=== PATIENT | male | born 1965 | race Hispanic/Latino ===

== ENCOUNTER 2018-10-31 06:48 | Day surgery (SDC) ==
--- NOTE | 2018-10-26 08:18 | EKG Report ---
Test Performed on : 10/26/2018 08:02:23 AM Test Reason : PAT Blood Pressure : / mmHG Vent. Rate : 050 BPM Atrial Rate : 050 BPM P-R Int : 158 ms QRS Dur : 090 ms QT Int : 420 ms P-R-T Axes : 048 023 013 degrees QTc Int : 382 ms Sinus bradycardia. Otherwise normal ECG No previous ECGs available Confirmed by Sydnie SHARMA, Koby ([id number]) on 10/26/2018 8:57:47 AM
[2018-10-26 08:21] LABS: URINE SOURCE CLEAN CATCH
[2018-10-26 08:23] LABS: BASO# 0.03 X1000 (0.0-0.2); BASO% 0.4 % (0.0-0.8); EOS% 3.6 % (0.0-10.0); HEMATOCRIT 44.7 % (42.0-52.0); HEMOGLOBIN 15.3 g/dL (14.0-18.0); IMM GRAN# 0.03 X1000 (0.0-0.04); IMM GRAN% 0.4 % (0.0-0.5); LYMPH# 1.79 X1000 (1.2-3.4); LYMPH% 21.3 % (20.5-51.1); MCH 28.7 PG (27-31); MCHC 34.2 g/dL (33-37); MCV 83.9 FL (81-99); MONO% 5.9 % (1.7-9.3); MPV 9.6 FL (7.4-10.4); NEUT# 5.76 X1000 (1.4-6.5); NEUT% 68.4 % (42.2-75.2); PLT 262 X1000 (130-400); RBC 5.33 XMIL (4.7-6.1); RDW 12.9 % (11.5-14.5); WBC 8.41 X1000 (4.8-10.8)
[2018-10-26 08:25] LABS: BILIRUBIN URINE NEGATIVE (NEGATIVE); BLOOD URINE NEGATIVE (NEGATIVE); COLOR YELLOW; GLUCOSE URINE NEGATIVE (NEGATIVE); KETONE URINE NEGATIVE (NEGATIVE); LEUKOCYTES URINE NEGATIVE (NEGATIVE); NITRITE URINE NEGATIVE (NEGATIVE); PROTEIN URINE NEGATIVE (NEGATIVE); TURBIDITY URINE CLEAR (CLEAR); UROBILINOGEN URINE NORMAL (NORMAL)
[2018-10-26 08:27] LABS: UR EPITHELIAL CELLS <10 /HPF (<10); URINE BACTERIA NEGATIVE /HPF; URINE RBC <10 /HPF (<10); URINE WBC <10 /HPF (<10)
[2018-10-26 08:34] LABS: INR 0.89; PROTIME 12.8 Seconds (11.0-16.0)
[2018-10-26 08:35] LABS: PTT 26.6 Seconds (22.3-41.8)
[2018-10-26 08:42] LABS: HEMOGLOBIN A1C 5.6 % (4.8-6.0)
[2018-10-26 08:43] LABS: AGAP 10; ALBUMIN 4.6 g/dL (3.5-5.0); BUN 17 mg/dL (8-22); CALCIUM 9.3 mg/dL (8.8-10.2); CHLORIDE 103 mmol/L (98-107); COSMO 283; ESTIMATED GFR > 60; GLUCOSE 110 mg/dL (70-104); SODIUM 141 mmol/L (136-145); TCO2 28 mmol/L (25-35)
[2018-10-31] MEDS ORDERED: COLACE ONE (07:18)
[2018-10-31] MEDS ORDERED: LR 1,000 ML ONE (07:18)
[2018-10-31] MEDS ORDERED: CELEBREX ONE (07:18)
[2018-10-31] MEDS ORDERED: LYRICA ONE (07:18)
[2018-10-31] MEDS ORDERED: PEPCID ONE (07:18)
[2018-10-31] MEDS ORDERED: KEFZOL 2 GM/D5W 2 GM/50 ML IVPB ONE (07:18)
[2018-10-31] MEDS ORDERED: REGLAN ONE (07:18)
[2018-10-31] MEDS ORDERED: TORADOL ONE (07:31)
[2018-10-31] MEDS ORDERED: DURAMORPH ONE (07:31)
[2018-10-31] MEDS ORDERED: SENSORCAINE-MPF 0.5%/EPI 1:200,000 ONE (07:32)
[2018-10-31] MEDS ORDERED: CYKLOKAPRON 1,000 MG/NS 2,000 MG/200 ML IVPB ONE (07:32)
[2018-10-31] MEDS ORDERED: SODIUM CHLORIDE 0.9% ONE (07:32)
[2018-10-31] MEDS ORDERED: VANCOMYCIN ONE (07:32)
[2018-10-31] MEDS ORDERED: NEOSPORIN G.U. IRRIGANT ONE (07:33)
[2018-10-31] MEDS ORDERED: EXPAREL 1.3% ONE (07:33)
[2018-10-31] MEDS ORDERED: VERSED ONE (07:46)
[2018-10-31] MEDS ORDERED: DIPRIVAN 1% ONE (07:47)
[2018-10-31] MEDS ORDERED: FENTANYL ONE (07:47)
[2018-10-31] MEDS ORDERED: DECADRON ONE (08:57)
[2018-10-31] MEDS ORDERED: ZOFRAN ONE (08:57)
[2018-10-31] MEDS ORDERED: OFIRMEV 1000 MG/ISOTONIC SOLN 1,000 MG/100 ML BOTTLE ONE (08:57)
[2018-10-31 10:37] LABS: URINE SOURCE CATH
[2018-10-31 10:44] LABS: BILIRUBIN URINE NEGATIVE (NEGATIVE); BLOOD URINE NEGATIVE (NEGATIVE); COLOR YELLOW; GLUCOSE URINE NEGATIVE (NEGATIVE); KETONE URINE NEGATIVE (NEGATIVE); LEUKOCYTES URINE NEGATIVE (NEGATIVE); NITRITE URINE NEGATIVE (NEGATIVE); PROTEIN URINE NEGATIVE (NEGATIVE); SP GRAVITY URINE 1.017; TURBIDITY URINE CLEAR (CLEAR); UR EPITHELIAL CELLS <10 /HPF (<10); URINE BACTERIA NEGATIVE /HPF; URINE RBC <10 /HPF (<10); URINE WBC <10 /HPF (<10); UROBILINOGEN URINE NORMAL (NORMAL)
[2018-10-31] MEDS ORDERED: NS 1,000 ML ONE (10:59)
--- NOTE | 2018-10-31 11:15 | OPERATIVE NOTE ---
PROCEDURE DATE: 10/31/2018 PREOPERATIVE DIAGNOSIS: Right knee degenerative joint disease. POSTOPERATIVE DIAGNOSIS: Right knee degenerative joint disease. PROCEDURE PERFORMED: Right total knee arthroplasty using [facility] size 6 femoral component, a size 7 tibial baseplate, a 10 articular insert, and a 38 mm patellar component. ANESTHESIA: Spinal. SURGEON: Alejo Finn MD. PIGMENT MIXER: Adelaide Nova PA-C, who was present throughout the case. Her assistance was critical for exposure, placement of implants, and wound closure. Her assistance greatly reduced anesthesia and operative time, and improved the efficiency in the OR. BLOOD LOSS: Minimal. TOURNIQUET TIME: Approximately an hour and a half. DESCRIPTION OF PROCEDURE: Patient was brought to the operative suite and placed in the supine position. After successful administration of general anesthesia, a well-padded tourniquet was placed on the right proximal thigh. The right lower extremity was prepped and draped in the usual sterile fashion. Leg was exsanguinated. Tourniquet was insufflated to 350 torr. A longitudinal incision was made beginning at the superior pole of the patella and extending distally to the tibia tuberosity. A medial arthrotomy was performed. Medial capsule was elevated off the medial tibial plateau. ACL, PCL, medial meniscus, and lateral meniscus were excised. A drill was entered in the center of the distal femur. Intramedullary guide was placed. Distal cutting block was pinned in place. Distal cut was made with an oscillating saw. The marginal osteophytes were removed with a rongeur. The drill was entered in the center of the tibia. Intramedullary guide was placed. Alignment checked with drop maurilio, taking 4 mm off the low side of the tibia which, in this case, was medially. The tibial cutting block was pinned in place. The articular surface of the tibial plateau was removed with an oscillating saw. Extension gaps were measured at 10 mm. The guide was then set to 19 mm and rotation was set, and the femur was measured to a size 6. The size 6 cutting block was then pinned in place. The anterior cuts, chamfer cuts, and posterior condylar cuts were made with an oscillating saw. A box cutting block was pinned in place and a box cut was made with a box osteotome and oscillating saw. Posterior condyle osteophytes were removed with a curved osteotome and rongeur. Attention was then directed to the tibia. The tibia sized to size 7. A size 7 guide was used for the fin punch. The tibial trial, femoral trial, and 10 mm articular insert were placed and taken through range of motion. Found to have excellent alignment, balancing, and range of motion. Attention was then directed to patella. Nine millimeters of articular surface of patella were removed with oscillating saw. Patella sized to a size 38. A size 38 guide was used drill peg holes, lateral facet was chamfered 30 to 45 degrees. Patella trial was placed and taken through a range of motion. Found to have excellent patella tracking. All trials were then removed. Knee was copiously irrigated and dried, being certain all bone debris was removed. The tibial component, femoral component, and patellar component were cemented into place, excess cement being removed with a [place]. Once the cement had hardened, excess cement was again removed with an osteotome. Knee was again copiously irrigated and dried, being certain all bone and cement debris were removed. The trial articular insert was removed. The knee was copiously infiltrated with Exparel including the posterior capsule, anterior capsule, anterior musculature, and subcutaneous tissue. A drain was placed, exiting superolaterally, and buried in the lateral gutter. The trial articular insert was removed. The definitive articular insert was then locked into place, which was a size 10. The knee was again copiously irrigated and dried, being certain all bone and debris were removed, with normal saline containing irrigant and then Vashe irrigation. The medial arthrotomy was then closed with 0 V-Loc. The skin edge was approximated with 2-0 Vicryl and skin was closed with Prineo. A sterile dressing was applied. The patient tolerated the procedure well without complications. At the end of the procedure, all counts correct x2. The patient was transported to the recovery room in stable condition. cc: Alejo Finn MD
--- NOTE | 2018-10-31 12:44 | Diag Imaging Result Doc PS360 ---
EXAM: KNEE 1-2 VIEWS-RIGHT 10/31/2018 HISTORY: R TKA TECHNIQUE: Right knee two views COMMENT: There is a total knee arthroplasty. There is no evidence of fracture or other acute bony abnormality. IMPRESSION: Postsurgical change. Electronically signed by Mayank Lowery 10/31/2018 12:42 PM
[2018-10-31] MEDS ORDERED: ZOFRAN IV PRN (12:45)
[2018-10-31] MEDS ORDERED: MORPHINE IV PRN ×2 (12:45)
[2018-10-31] MEDS ORDERED: MILK OF MAGNESIA PO PRN (12:45)
[2018-10-31] MEDS: TYLENOL PO SCH ×2 (13:34→21:27)
[2018-10-31] MEDS: ULTRAM PO SCH ×2 (13:34→21:27)
[2018-10-31] MEDS: MORPHINE IV PRN ×2 (13:39→19:00)
[2018-10-31] MEDS: KEFZOL 2 GM/D5W 2 GM/50 ML IVPB IV SCH (16:08)
[2018-10-31] MEDS: NS 1,000 ML IV SCH (21:26)
[2018-10-31] MEDS: CELEBREX PO SCH (21:28)
[2018-10-31] MEDS: LYRICA PO SCH (21:28)
[2018-10-31] MEDS: PERIDEX MT SCH (21:28)
[2018-10-31] MEDS: COLACE PO SCH (21:28)
[2018-11-01] MEDS: KEFZOL 2 GM/D5W 2 GM/50 ML IVPB IV SCH (01:12)
[2018-11-01] MEDS: NS 1,000 ML IV SCH (02:20)
[2018-11-01] MEDS: TYLENOL PO SCH ×2 (03:19→12:46)
[2018-11-01] MEDS: ULTRAM PO SCH ×2 (03:19→12:47)
[2018-11-01 06:30] LABS: HEMATOCRIT 38.1 % (42.0-52.0); HEMOGLOBIN 13.4 g/dL (14.0-18.0)
[2018-11-01 07:17] LABS: AGAP 4; BUN 16 mg/dL (8-22); CALCIUM 8.6 mg/dL (8.8-10.2); CHLORIDE 101 mmol/L (98-107); COSMO 269; CREATININE 0.8 mg/dL (0.7-1.2); ESTIMATED GFR > 60; GLUCOSE 122 mg/dL (70-104); POTASSIUM 4.4 mmol/L (3.5-5.1); SODIUM 133 mmol/L (136-145); TCO2 28 mmol/L (25-35)
[2018-11-01] MEDS ORDERED: OXY IR PO PRN (07:24)
[2018-11-01] MEDS ORDERED: MOBIC PO SCH (09:00)
[2018-11-01] MEDS ORDERED: PEPCID PO SCH (09:00)
[2018-11-01] MEDS ORDERED: DECADRON IV ONE (09:00)
[2018-11-01] MEDS ORDERED: ASPIRIN PO SCH (09:00)
--- NOTE | 2018-11-01 10:33 | DISCHARGE SUMMARY ---
ADMISSION DATE: 10/31/2018 DISCHARGE DATE: 11/01/2018 DISCHARGE DIAGNOSIS: Right knee degenerative joint disease, status post right total knee arthroplasty. DISCHARGE MEDICATIONS: See discharge medication list. DISPOSITION: The patient is discharged home with home health. DISCHARGE INSTRUCTIONS: Instructions for total knee arthroplasty protocol and instructed to return to see Dr. Finn next . HOSPITAL COURSE: On the day of admission, patient underwent a right total knee arthroplasty. His postoperative course was unremarkable. At discharge, he is afebrile. Tolerating regular diet, and ambulating well. At discharge, his hemoglobin is 13.4 and his hematocrit is 38.1. He has had 50 mL of drainage from his Hemovac drain in the last 8 hours. His right knee dressing is clean, dry, intact. He is discharged home after working with physical therapy in stable condition with instructions to follow up as described above. Dictated by ARLYN Reyes for Alejo Finn MD cc: ARLYN Reyes MD
[2018-11-01 10:52] VITALS: BP 127/70
[2018-11-01] MEDS: PERIDEX MT SCH (12:44)
[2018-11-01] MEDS: CELEBREX PO SCH (12:45)
[2018-11-01] MEDS: COLACE PO SCH (12:45)
[2018-11-01] MEDS: LYRICA PO SCH (12:46)
== END 2018-11-01 13:08 | disposition home or self-care (01) ==
LOC: OR 06:48 → 4N 06:48 → OR 11-01 13:08
PROVIDERS: ATTEND Orthopaedic Surgery
CPT/HCPCS: 73560; 80048; 81001; 82040; 83036; 85014; 85018; 85025; 85610; 85730; 86850; 86900; 86901; 88305; 88311; 93005; 93010; 94761; 94799; 97110; 97116; 97162; 97530; A9270; C9290; J0131; J0690; J1100; J1885; J2250; J2270; J2274; J2275; J2405; J3010; J3370; J7030; J7120; Q9974

== ENCOUNTER 2019-07-31 08:47 | Day surgery (SDC) ==
--- NOTE | 2019-07-25 10:53 | EKG Report ---
Test Performed on : 07/25/2019 10:48:50 AM Test Reason : PAT Blood Pressure : / mmHG Vent. Rate : 052 BPM Atrial Rate : 052 BPM P-R Int : 164 ms QRS Dur : 084 ms QT Int : 408 ms P-R-T Axes : 054 034 012 degrees QTc Int : 379 ms Sinus bradycardia. Otherwise normal ECG When compared with ECG of 26-OCT-2018 08:02, No significant change was found Confirmed by Alan SHARMA, Jero Newman ([id number]) on 07/25/2019 6:15:52 PM
[2019-07-25 11:20] LABS: URINE SOURCE CLEAN CATCH
[2019-07-25 11:29] LABS: BILIRUBIN URINE NEGATIVE (NEGATIVE); BLOOD URINE NEGATIVE (NEGATIVE); COLOR YELLOW; GLUCOSE URINE NEGATIVE (NEGATIVE); KETONE URINE NEGATIVE (NEGATIVE); LEUKOCYTES URINE NEGATIVE (NEGATIVE); NITRITE URINE NEGATIVE (NEGATIVE); PROTEIN URINE NEGATIVE (NEGATIVE); SP GRAVITY URINE 1.018; TURBIDITY URINE CLEAR (CLEAR); UR EPITHELIAL CELLS <10 /HPF (<10); URINE BACTERIA NEGATIVE /HPF; URINE RBC <10 /HPF (<10); URINE WBC <10 /HPF (<10); UROBILINOGEN URINE NORMAL (NORMAL)
[2019-07-25 11:33] LABS: BASO# 0.03 X1000 (0.0-0.2); BASO% 0.4 % (0.0-0.8); EOS# 0.44 X1000 (0.0-0.7); HEMATOCRIT 45.1 % (42.0-52.0); HEMOGLOBIN 15.1 g/dL (14.0-18.0); LYMPH# 2.15 X1000 (1.2-3.4); LYMPH% 29.5 % (20.5-51.1); MCH 27.6 PG (27-31); MCHC 33.5 g/dL (33-37); MCV 82.4 FL (81-99); MONO% 5.5 % (1.7-9.3); MPV 10.2 FL (7.4-10.4); NEUT# 4.27 X1000 (1.4-6.5); NEUT% 58.6 % (42.2-75.2); PLT 261 X1000 (130-400); RBC 5.47 XMIL (4.7-6.1); RDW 12.7 % (11.5-14.5); WBC 7.29 X1000 (4.8-10.8)
[2019-07-25 11:46] LABS: INR 0.97
[2019-07-25 11:47] LABS: PTT 27.7 Seconds (22.3-41.8)
[2019-07-25 12:19] LABS: HEMOGLOBIN A1C 5.8 % (4.8-6.0)
[2019-07-25 12:23] LABS: AGAP 12; BUN 16 mg/dL (8-22); CALCIUM 9.8 mg/dL (8.8-10.2); CHLORIDE 103 mmol/L (98-107); COSMO 281; ESTIMATED GFR > 60; GLUCOSE 101 mg/dL (70-104); POTASSIUM 4.4 mmol/L (3.5-5.1); SODIUM 140 mmol/L (136-145); TCO2 25 mmol/L (25-35)
[2019-07-31] MEDS ORDERED: LYRICA ONE (09:09)
[2019-07-31] MEDS ORDERED: PEPCID ONE (09:09)
[2019-07-31] MEDS ORDERED: REGLAN ONE (09:09)
[2019-07-31] MEDS ORDERED: COLACE ONE (09:09)
[2019-07-31] MEDS ORDERED: LR 1,000 ML ONE (09:10)
[2019-07-31] MEDS ORDERED: KEFZOL 1 GM/D5W 2 GM/100 ML IVPB ONE (09:10)
[2019-07-31] MEDS ORDERED: CELEBREX ONE (09:10)
[2019-07-31] MEDS ORDERED: DURAMORPH ONE (10:53)
[2019-07-31] MEDS ORDERED: MARCAINE 0.25% PF ONE (10:54)
[2019-07-31] MEDS ORDERED: SODIUM CHLORIDE 0.9% ONE (10:54)
[2019-07-31] MEDS ORDERED: VANCOMYCIN ONE (10:54)
[2019-07-31] MEDS ORDERED: TORADOL ONE (10:54)
[2019-07-31] MEDS ORDERED: NEOSPORIN G.U. IRRIGANT ONE (10:55)
[2019-07-31] MEDS ORDERED: EXPAREL 1.3% ONE (10:55)
[2019-07-31] MEDS ORDERED: DIPRIVAN 1% 500 MG/50 ML BOTTLE ONE (11:25)
[2019-07-31] MEDS ORDERED: FENTANYL ONE (11:26)
[2019-07-31] MEDS ORDERED: VERSED ONE (11:26)
[2019-07-31] MEDS: CYKLOKAPRON 1,000 MG/NS 2,000 MG/200 ML IVPB ONE ×2 (12:25→13:47)
[2019-07-31] MEDS ORDERED: ZOFRAN ONE (12:48)
[2019-07-31] MEDS ORDERED: DECADRON ONE (12:48)
[2019-07-31] MEDS ORDERED: OFIRMEV 1000 MG/ISOTONIC SOLN 1,000 MG/100 ML BOTTLE ONE (12:48)
[2019-07-31 13:07] LABS: URINE SOURCE CATH
[2019-07-31] MEDS ORDERED: DIPRIVAN 1% ONE ×3 (13:15→14:08)
[2019-07-31 13:19] LABS: BILIRUBIN URINE NEGATIVE (NEGATIVE); BLOOD URINE NEGATIVE (NEGATIVE); COLOR YELLOW; GLUCOSE URINE NEGATIVE (NEGATIVE); KETONE URINE NEGATIVE (NEGATIVE); LEUKOCYTES URINE NEGATIVE (NEGATIVE); NITRITE URINE NEGATIVE (NEGATIVE); PROTEIN URINE NEGATIVE (NEGATIVE); SP GRAVITY URINE 1.018; TURBIDITY URINE CLEAR (CLEAR); UR EPITHELIAL CELLS <10 /HPF (<10); URINE BACTERIA NEGATIVE /HPF; URINE RBC <10 /HPF (<10); URINE WBC <10 /HPF (<10); UROBILINOGEN URINE NORMAL (NORMAL)
[2019-07-31] MEDS ORDERED: NS 1,000 ML ONE (14:35)
[2019-07-31] MEDS ORDERED: OXY IR ONE (15:24)
--- NOTE | 2019-07-31 15:50 | OPERATIVE NOTE ---
PROCEDURE DATE: 07/31/2019 PREOPERATIVE DIAGNOSIS: Left knee degenerative joint disease. POSTOPERATIVE DIAGNOSIS: Left knee degenerative joint disease. PROCEDURE PERFORMED: Left total knee arthroplasty using [facility] size 6 femoral component, a size 7 tibial base plate with a 13 mm articular insert and a 38 mm patellar component. ANESTHESIA: Spinal. SURGEON: Alejo Finn MD. APPLICATION LEAD: RADHA Baez was present throughout the case whose assistance was necessary for successful completion of case. ESTIMATED BLOOD LOSS: Minimal. TOURNIQUET TIME: Approximately an hour. DESCRIPTION OF PROCEDURE: The patient was brought to the operative suite and placed in supine position. After successful administration of spinal anesthesia, a well-padded tourniquet was placed on the left proximal thigh. Left lower extremity was prepped and draped in the usual sterile fashion. Leg was exsanguinated. Tourniquet insufflated to 350 mmHg. Longitudinal incision was made beginning at the superior pole of the patella and extended distally to the tibia tuberosity. Full-thickness skin flaps were elevated. The medial arthrotomy was made. The medial capsule was elevated off the medial plateau. The ACL, PCL, medial meniscus, and lateral meniscus were excised. A drill was entered in the distal femur, intramedullary guide was placed. Distal cutting block was pinned in place. Distal cut was made with oscillating saw. Attention was directed to the tibia. A drill was inserted into the tibia and intramedullary guide was placed. Alignment checked with drop maurilio and taking 4 mm off the low side of the tibia, which was medially, the tibial cutting block was pinned into place. The articular surface of the tibial plateau was removed with an oscillating saw. Tissue gaps were checked at 13 mm. Flexion gap was at 22 mm to account for 9 mm of the posterior condyle of the femoral component. Once this proper rotation was set, the femoral cutting block was pinned in place and the anterior cuts, chamfer cuts, and posterior condylar cuts were made with the oscillating saw. Marginal osteophytes removed with rongeur. A box cutting block was pinned in place. A box cut was made with a box osteotome and oscillating saw. Posterior condyle osteophytes were removed with the curved osteotome and rongeur. Attention was directed to the tibia. Tibia was sized to size 7. A size 7 guide was used for the pin punch making sure it was in proper alignment and then the tibial trial, femoral trial, and 13 mm articular insert were placed and taken through range of motion and found to have excellent alignment, balancing range of motion. Attention was directed back to the patella, 9 mm of the articular surface of the patella were removed with oscillating saw, patella sized to a size 13. A size 13 guide was used to drill peg holes, lateral facet was chamfered 30 to 40 degrees. Patella trial was placed, taken through range of motion and found have excellent patella tracking. All trials were then removed. Knee was copiously irrigated and dried, being certain all bone debris was removed. The tibial component, femoral component and patellar component were cemented into place. Excess cement being removed with a [place]. Once the cement hardened, excess cement was again removed with the osteotome. Knee was again copiously irrigated and dried, being certain all bone and cement debris was removed. The trial articular insert was removed. The knee was copiously infiltrated with Exparel including the posterior capsule, anterior capsule, anterior musculature, and subcutaneous tissue. The tourniquet was deflated and hemostasis was obtained with electrocautery and the definitive 13 mm articular insert was locked in place. Knee was again copiously irrigated with normal saline containing irrigant and Vashe irrigation. The medial arthrotomy was closed with 0 V-Loc. The skin edge approximated with 2-0 Vicryl. Skin was closed with Prineo and a sterile dressing was applied. The patient tolerated the procedure well without complication. At the end the procedure, all counts were correct x2. The patient was transferred to the recovery room in the stable condition. cc: Alejo Finn MD
[2019-07-31] MEDS ORDERED: MORPHINE IV PRN ×3 (16:15)
[2019-07-31] MEDS ORDERED: OXY IR PO PRN ×2 (16:15)
[2019-07-31] MEDS ORDERED: MILK OF MAGNESIA PO PRN (16:15)
[2019-07-31] MEDS ORDERED: ZOFRAN IV PRN (16:15)
[2019-07-31] MEDS: NS 1,000 ML IV SCH (19:40)
[2019-07-31] MEDS: KEFZOL 2 GM/D5W 2 GM/50 ML IVPB IV SCH (20:30)
[2019-07-31] MEDS: PERIDEX MT SCH (20:31)
[2019-07-31] MEDS: COLACE PO SCH (20:31)
[2019-07-31] MEDS: LYRICA PO SCH (20:32)
[2019-07-31] MEDS: CELEBREX PO SCH (20:32)
[2019-07-31] MEDS: ULTRAM PO SCH (20:32)
[2019-07-31] MEDS: TYLENOL PO SCH (20:33)
[2019-08-01] MEDS: ULTRAM PO SCH ×2 (01:23→08:54)
[2019-08-01] MEDS: TYLENOL PO SCH ×2 (01:23→08:54)
[2019-08-01] MEDS: KEFZOL 2 GM/D5W 2 GM/50 ML IVPB IV SCH (04:41)
[2019-08-01] MEDS: NS 1,000 ML IV SCH (04:41)
[2019-08-01 07:10] LABS: HEMATOCRIT 40.1 % (42.0-52.0); HEMOGLOBIN 13.5 g/dL (14.0-18.0)
[2019-08-01 07:53] LABS: AGAP 10; BUN 17 mg/dL (8-22); CALCIUM 8.9 mg/dL (8.8-10.2); CHLORIDE 104 mmol/L (98-107); COSMO 273; CREATININE 1.1 mg/dL (0.7-1.2); ESTIMATED GFR > 60; GLUCOSE 130 mg/dL (70-104); POTASSIUM 4.9 mmol/L (3.5-5.1); SODIUM 135 mmol/L (136-145); TCO2 21 mmol/L (25-35)
[2019-08-01] MEDS ORDERED: SALINE LOCK IV FLUID XX ONE (08:10)
[2019-08-01] MEDS: CELEBREX PO SCH (08:54)
[2019-08-01] MEDS: PERIDEX MT SCH (08:55)
[2019-08-01] MEDS: LYRICA PO SCH (08:55)
[2019-08-01] MEDS: COLACE PO SCH (08:55)
[2019-08-01] MEDS ORDERED: ASPIRIN PO SCH (09:00)
[2019-08-01] MEDS ORDERED: PEPCID PO SCH (09:00)
[2019-08-01] MEDS ORDERED: DECADRON IV ONE (09:00)
[2019-08-01 11:42] VITALS: BP 118/63
--- NOTE | 2019-08-02 09:24 | DISCHARGE SUMMARY ---
ADMISSION DATE: 07/31/2019 DISCHARGE DATE: 08/01/2019 DISCHARGE DIAGNOSIS: Left knee degenerative joint disease, status post left total knee arthroplasty. DISCHARGE MEDICATIONS: See discharge medication list. DISPOSITION: The patient was discharged home with home health, physical therapy. Instructed to return for any signs or symptoms of infection, deep venous thrombosis. Instructed to return to see Dr. Finn next . HOSPITAL COURSE: On the day of admission, the patient underwent a left total knee arthroplasty. His postoperative course was unremarkable. At discharge, he is afebrile, tolerating a regular diet, ambulating well with Physical Therapy. His wound is clean, dry, and intact without sign of infection. He is discharged to home in stable condition, with instructions to follow up as described above. cc: Alejo Finn MD
== END 2019-08-01 15:03 | disposition home or self-care (01) ==
LOC: OPS 08:47 → 4N 08:47 → OPS 08-01 15:03
PROVIDERS: ATTEND Orthopaedic Surgery